=== PATIENT | female | born 1975 | race Caucasian/White ===

== ENCOUNTER → 2019-03-01 | Outpatient (REF) | payer OTHER ==
[2019-03-04 00:08] LABS: Lyme Disease IgG/IgM Antibodie <0.91 ISR (0.00-0.90); Lyme Disease IgM Ab Quantitati <0.80 index (0.00-0.79)
== END ==
LOC: M LAB REF 16:58
PROVIDERS: ATTEND Nurse Practitioner Adult Health
DX: M25.50 Pain in unspecified joint (principal)

== ENCOUNTER → 2020-05-01 | Outpatient (REF) | payer OTHER | LOC: M LAB 23:45 | PROVIDERS: ATTEND Physician Assistant | DX: Z11.59 Encounter for screening for other viral diseases (principal) ==

== ENCOUNTER → 2020-09-16 | Outpatient (CLI) | payer BC ==
--- NOTE | 2020-09-16 16:08 | REP ---
INDICATION: N92.0 EXCESSIVE AND FREQUENT MENSTRUATION COMPARISON: 02/15/2017 TECHNIQUE: Transabdominal pelvic ultrasound followed by transvaginal examination for better evaluation of the endometrium and adnexa with color Doppler evaluation of the ovaries. FINDINGS: Bladder is unremarkable and measures 8.3 x 5.8 x 4.6 cm. Anteverted uterus measures 8.2 x 4.3 x 5.5 cm. The endometrial complex measures 15 mm thickness. No discrete uterine or significant endometrial abnormalities are appreciated. Small cystic changes to the endometrium are noted but may be related to prior dilatation and curettage. Bilateral ovaries are normal in appearance and vascularity without evidence for torsion. Right ovary measures 2.0 x 1.8 x 1.3 cm; R I = 0.54. Left ovary measures 3.3 x 1.9 x 2.2 cm with 2.3 x 1.2 x 2.1 cm complex possibly physiologic involuting cyst; R I = 0.58. No pelvic fluid or adnexal mass lesion. IMPRESSION: Small cystic changes to the endometrium likely chronic and possibly related to prior instrumentation. Complex left ovarian cyst likely involuting physiologic cyst/follicle. <Electronically signed by Edgard Angel > 09/16/20 [id number]
== END ==
LOC: M WHC 14:57
PROVIDERS: ATTEND Obstetrics & Gynecology
DX: N92.0 Excessive and frequent menstruation with regular cycle (principal); N83.202 Unspecified ovarian cyst, left side

== ENCOUNTER → 2021-02-18 | Outpatient (CLI) | payer BC, OTHER ==
[2021-02-18 17:50] LABS: HEMATOCRIT 40.2 % (36.0-47.0); HEMOGLOBIN 13.4 g/dl (12.0-15.5); MEAN CORPUSCULAR HEMOGLOBIN 30.4 pg (27.0-33.0); MEAN CORPUSCULAR HGB CONC 33.3 g/dl (32.0-36.5); MEAN CORPUSCULAR VOLUME 91.2 fl (80.0-96.0); PLATELET COUNT, AUTOMATED 354 10^3/uL (150-450); RED BLOOD COUNT 4.41 10^6/uL (4.00-5.40); WHITE BLOOD COUNT 8.6 10^3/uL (4.0-10.0)
[2021-02-18 18:43] LABS: ERYTHROCYTE SEDIMENTATION RATE 6 mm/hr (0-20)
[2021-02-18 18:54] LABS: C REACTIVE PROTEIN QUANTITATIV < 0.30 MG/DL (0.00-0.30)
[2021-02-18 19:08] LABS: TOTAL 25(OH) VITAMIN D 31.3 NG/ML (30.0-100.0); VITAMIN B12 LEVEL 763 PG/ML (247-911)
== END ==
LOC: M PLALAB 15:29
PROVIDERS: ATTEND Nurse Practitioner
DX: R19.4 Change in bowel habit (principal); K13.79 Other lesions of oral mucosa; M25.50 Pain in unspecified joint; R53.83 Other fatigue

== ENCOUNTER → 2021-06-24 | Outpatient (CLI) | payer BC, OTHER | LOC: M RAD 15:04 | PROVIDERS: ATTEND Obstetrics & Gynecology | DX: N88.8 Other specified noninflammatory disorders of cervix uteri (principal); N83.201 Unspecified ovarian cyst, right side ==

== ENCOUNTER → 2021-08-15 | Outpatient (REF) | payer BC, OTHER | LOC: M LAB REF 12:18 | PROVIDERS: ATTEND Nurse Practitioner Adult Health | DX: R31.0 Gross hematuria (principal) ==

== ENCOUNTER → 2021-08-15 | Outpatient (CLI) | payer BC, OTHER | LOC: M RAD 09:09 | PROVIDERS: ATTEND Nurse Practitioner Adult Health | DX: R31.0 Gross hematuria (principal) ==

== ENCOUNTER → 2021-09-25 | Outpatient (REF) | payer BC, OTHER | LOC: M LAB REF 18:50 | PROVIDERS: ATTEND Nurse Practitioner | DX: K62.89 Other specified diseases of anus and rectum (principal); R30.0 Dysuria ==

== ENCOUNTER → 2021-10-29 | Outpatient (CLI) | payer BC, OTHER | LOC: M LAB 10-28 16:30 | PROVIDERS: ATTEND Nurse Practitioner | DX: K62.89 Other specified diseases of anus and rectum (principal) ==

== ENCOUNTER → 2022-01-08 | Outpatient (REF) | payer BC, OTHER ==
[2022-01-08 18:19] LABS: MONO SCRN NEGATIVE (NEGATIVE)
== END ==
LOC: M LAB REF 15:57
PROVIDERS: ATTEND Physician Assistant Medical
DX: R50.9 Fever, unspecified (principal)

== ENCOUNTER 2022-04-10 11:27 | Emergency (ER) | payer BC, OTHER ==
[~2022-04-10] VITALS: Ht 170.2 cm; Wt 79.9 kg
[2022-04-10] MEDS ORDERED: MODA100T13 PR (11:45)
[2022-04-10] MEDS ORDERED: MESA1000 PR (11:45)
[2022-04-10 14:38] VITALS: BP 130/78
== END 2022-04-10 14:53 | disposition home or self-care (01) ==
LOC: M ED 11:27
DX: M79.604 Pain in right leg (principal); R22.41 Localized swelling, mass and lump, right lower limb; Z88.2 Allergy status to sulfonamides; Z79.899 Other long term (current) drug therapy

== ENCOUNTER → 2022-06-12 | Outpatient (REF) | payer BC, OTHER ==
[~2022-06-12] MED LIST: MESA1000 PR; MODA100T13 PR
[2022-06-12 16:39] LABS: APPEARANCE, URINE CLOUDY (CLEAR); BILIRUBIN, URINE AUTO NEGATIVE (NEGATIVE); BLOOD, URINE BLOOD NEGATIVE (NEGATIVE); COLOR, URINE YELLOW (YELLOW); GLUCOSE, URINE (UA) AUTO NEGATIVE (NEGATIVE); KETONE, URINE AUTO NEGATIVE (NEGATIVE); LEUKOCYTE ESTERASE, URINE AUTO TRACE (NEGATIVE); NITRITE, URINE AUTO NEGATIVE (NEGATIVE); PROTEIN, URINE AUTO NEGATIVE (NEGATIVE); SPECIFIC GRAVITY URINE AUTO 1.019 (1.002-1.035); UROBILINOGEN, URINE AUTO 0.2 mg/dL (0.0-2.0)
[2022-06-12 16:43] LABS: AMORPHOUS SEDIMENT SMALL (NEGATIVE); BACTERIA, URINE AUTO 1+ (NEGATIVE); MUCUS, URINE SMALL (NEGATIVE); RBC, URINE AUTO 2 /HPF (0-3); SQUAMOUS EPITHELIAL CELL UR AU 3 /HPF (0-6); WBC, URINE AUTO 2 /HPF (0-3)
== END ==
LOC: M LAB REF 16:10
PROVIDERS: ATTEND Physician Assistant
DX: N39.0 Urinary tract infection, site not specified (principal)

== ENCOUNTER → 2023-05-25 | Outpatient (REF) | payer OTHER | LOC: M SFHCDERM 17:41 | PROVIDERS: ATTEND Physician Assistant | DX: D48.9 Neoplasm of uncertain behavior, unspecified (principal) ==

== ENCOUNTER → 2024-07-26 | Outpatient (REF) | payer OTHER | LOC: M LAB REF 13:59 | PROVIDERS: ATTEND Physician Assistant | DX: B34.9 Viral infection, unspecified (principal) ==